=== PATIENT | female | born 1945 ===

== ENCOUNTER 2023-02-07 16:33 | Inpatient (IN) ==
[2023-02-08] MEDS: cefTRIAXone 1 gm/50 mL D5W 1 GM/50 ML BAG IV SCH ×2 (00:04→23:21)
[2023-02-08] MEDS: Albuterol HFA INHALER 8 gm MDI INH PRN ×2 (00:04→05:20)
[2023-02-08 00:15] LABS: Albumin 3.5 g/dL (3.2-5.2); Calcium 8.8 mg/dL (8.6-10.3); Magnesium 1.9 mg/dL (1.9-2.7); Potassium 3.6 mmol/L (3.5-5.0); Total Bilirubin 0.6 mg/dL (0.2-1.0)
[2023-02-08 00:21] LABS: Albumin/Globulin Ratio 1.2 (1-3); Creatinine, Serum 0.8 mg/dL (0.51-0.95); Total Protein 6.5 g/dL (6.4-8.9); eGFR CKD-EPI 75.8 (>60)
[2023-02-08] MEDS: Azithromycin 500 mg/250 ml NS 500 MG/250 ML BAG IVPB SCH (01:03)
[2023-02-08] MEDS ORDERED: Albuterol/Ipratropium NEB.SOL (2.5/0.5 MG) 3 ML NEB.SOLN INH PRN (05:19)
[2023-02-08] MEDS ORDERED: guaiFENesin 100 mg/5 ml LIQ unit dose cup PO ONE (05:45)
[2023-02-08 06:23] LABS: ABS Basophils 0.1 10^3/uL (0.0-0.1); ABS Eosinophils 0.3 10^3/uL (0.0-0.5); ABS Monocytes 1.2 10^3/uL (0.0-0.9); Hematocrit 34.2 % (35-45); Hemoglobin 11.7 g/dL (11.5-14.3); Lymphocyte % 6.2 %; Mean Corpuscular Hemoglobin 31.8 pg (27-33); Mean Corpuscular Hgb Conc 34.1 g/dL (31-36); Mean Corpuscular Volume 93.2 fL (80-97); Mean Platelet Volume 7.6 fL (7.5-11.2); Platelet Count 228 10^3/uL (150-450); Red Blood Count 3.68 10^6/uL (3.63-4.92); Red Cell Distribution Width 14.1 % (12-17); White Blood Count 15.6 10^3/uL (3.8-11.8)
[2023-02-08 06:57] LABS: Calcium 8.4 mg/dL (8.6-10.3); Creatinine, Serum 0.77 mg/dL (0.51-0.95); Magnesium 1.9 mg/dL (1.9-2.7); Potassium 3.6 mmol/L (3.5-5.0); eGFR CKD-EPI 79.4 (>60)
[2023-02-08] MEDS: CMCS: Brimonidine/Timolol 0.2%/0.5% OPTH(NF) SOL 5 ML BOTH EYES SCH ×2 (08:50→20:07)
[2023-02-08] MEDS ORDERED: Aspirin EC 81 mg TAB.EC (enteric coated) PO SCH (09:00)
[2023-02-08] MEDS: Albuterol/Ipratropium NEB.SOL (2.5/0.5 MG) 3 ML NEB.SOLN INH SCH ×5 (09:19→19:56)
[2023-02-08] MEDS: KCL 20 MEQ/100 ML IVPREMIX 20 MEQ/100 ML BAG IV SCH ×2 (12:26→18:32)
[2023-02-08 15:30] LABS: TSH Ultra Thyroid Stim Horm 1.33 mcIU/mL (0.34-5.60)
[2023-02-08 15:33] LABS: Free T4 0.99 ng/dL (0.61-1.12)
[2023-02-08] MEDS: guaiFENesin/CODIENE 100mg/10mg 5 ML UDC PO PRN (16:31)
[2023-02-08 17:36] LABS: HDL Cholesterol 88.4 mg/dL
[2023-02-08 18:24] LABS: Potassium 3.9 mmol/L (3.5-5.0)
[2023-02-08 18:29] LABS: Creatinine, Serum 0.75 mg/dL (0.51-0.95); eGFR CKD-EPI 81.9 (>60)
[2023-02-08] MEDS ORDERED: Enoxaparin 40 MG/0.4 ML SYR SUBCUT SCH ×2 (20:00→21:00)
[2023-02-08] MEDS: Latanoprost 0.005% 2.5 ml BTL BOTH EYES SCH (20:07)
[2023-02-09] MEDS: Azithromycin 500 mg/250 ml NS 500 MG/250 ML BAG IVPB SCH (00:05)
[2023-02-09] MEDS: guaiFENesin/CODIENE 100mg/10mg 5 ML UDC PO PRN ×4 (01:45→23:31)
[2023-02-09] MEDS: Albuterol 2.5mg/3 ml (0.083%) NEB.SOLN INH PRN (03:15)
[2023-02-09] MEDS: Albuterol/Ipratropium NEB.SOL (2.5/0.5 MG) 3 ML NEB.SOLN INH SCH ×4 (08:19→19:22)
[2023-02-09] MEDS: CMCS: Brimonidine/Timolol 0.2%/0.5% OPTH(NF) SOL 5 ML BOTH EYES SCH ×2 (08:35→20:23)
[2023-02-09] MEDS: Latanoprost 0.005% 2.5 ml BTL BOTH EYES SCH (20:24)
[2023-02-09] MEDS: cefTRIAXone 1 gm/50 mL D5W 1 GM/50 ML BAG IV SCH (23:25)
[2023-02-10] MEDS: guaiFENesin/CODIENE 100mg/10mg 5 ML UDC PO PRN ×4 (03:34→23:21)
[2023-02-10] MEDS: Albuterol 2.5mg/3 ml (0.083%) NEB.SOLN INH PRN ×2 (03:41→23:36)
[2023-02-10 06:08] LABS: ABS Basophils 0.1 10^3/uL (0.0-0.1); ABS Eosinophils 0.3 10^3/uL (0.0-0.5); ABS Lymphocytes 0.9 10^3/uL (1.0-4.8); ABS Monocytes 0.9 10^3/uL (0.0-0.9); ABS Neutrophils 9.5 10^3/uL (1.5-7.6); Eosinophil % 2.6 %; Hematocrit 33.4 % (35-45); Hemoglobin 11.2 g/dL (11.5-14.3); Mean Corpuscular Hemoglobin 31.1 pg (27-33); Mean Corpuscular Hgb Conc 33.5 g/dL (31-36); Mean Corpuscular Volume 92.9 fL (80-97); Mean Platelet Volume 6.9 fL (7.5-11.2); Platelet Count 273 10^3/uL (150-450); Red Blood Count 3.59 10^6/uL (3.63-4.92); Red Cell Distribution Width 13.9 % (12-17); White Blood Count 11.7 10^3/uL (3.8-11.8)
[2023-02-10 06:11] LABS: INR 1.41 (0.83-1.13)
[2023-02-10 06:35] LABS: Calcium 8.5 mg/dL (8.6-10.3); Creatinine, Serum 0.61 mg/dL (0.51-0.95); Potassium 4.2 mmol/L (3.5-5.0)
[2023-02-10] MEDS: Albuterol/Ipratropium NEB.SOL (2.5/0.5 MG) 3 ML NEB.SOLN INH SCH ×4 (07:13→19:16)
[2023-02-10] MEDS: CMCS: Brimonidine/Timolol 0.2%/0.5% OPTH(NF) SOL 5 ML BOTH EYES SCH ×2 (11:54→23:19)
[2023-02-10] MEDS: Latanoprost 0.005% 2.5 ml BTL BOTH EYES SCH (23:20)
[2023-02-10] MEDS: cefTRIAXone 1 gm/50 mL D5W 1 GM/50 ML BAG IV SCH (23:21)
[2023-02-11] MEDS: guaiFENesin/CODIENE 100mg/10mg 5 ML UDC PO PRN ×2 (06:12→21:12)
[2023-02-11 06:17] LABS: ABS Eosinophils 0.4 10^3/uL (0.0-0.5); ABS Lymphocytes 1.1 10^3/uL (1.0-4.8); ABS Monocytes 0.8 10^3/uL (0.0-0.9); ABS Neutrophils 7.8 10^3/uL (1.5-7.6); Eosinophil % 3.9 %; Hematocrit 35.2 % (35-45); Lymphocyte % 10.5 %; Mean Corpuscular Hemoglobin 31.5 pg (27-33); Mean Corpuscular Volume 92.7 fL (80-97); Platelet Count 342 10^3/uL (150-450); Red Cell Distribution Width 14.2 % (12-17); White Blood Count 10.2 10^3/uL (3.8-11.8)
[2023-02-11 06:45] LABS: Calcium 8.8 mg/dL (8.6-10.3); Creatinine, Serum 0.57 mg/dL (0.51-0.95); Magnesium 2.1 mg/dL (1.9-2.7); Potassium 4.7 mmol/L (3.5-5.0); eGFR CKD-EPI 93.5 (>60)
[2023-02-11] MEDS: Albuterol/Ipratropium NEB.SOL (2.5/0.5 MG) 3 ML NEB.SOLN INH SCH ×2 (08:02→11:17)
[2023-02-11] MEDS: CMCS: Brimonidine/Timolol 0.2%/0.5% OPTH(NF) SOL 5 ML BOTH EYES SCH ×2 (10:00→21:14)
[2023-02-11] MEDS: CMCS: FLUTICAS/UMECLI/VILANT 100-62.5-25 MDI (NF) INH SCH (15:27)
[2023-02-11] MEDS ORDERED: Enoxaparin 40 MG/0.4 ML SYR SUBCUT SCH (18:00)
[2023-02-11] MEDS: Latanoprost 0.005% 2.5 ml BTL BOTH EYES SCH (21:12)
[2023-02-11] MEDS: Polyethylene Glycol 3350 17 GM PACKET PO SCH (21:12)
[2023-02-11] MEDS: Senna TAB 8.6 mg TAB PO SCH (21:13)
[2023-02-11] MEDS: cefTRIAXone 1 gm/50 mL D5W 1 GM/50 ML BAG IV SCH (21:17)
[2023-02-12] MEDS: guaiFENesin/CODIENE 100mg/10mg 5 ML UDC PO PRN ×3 (05:11→23:45)
[2023-02-12 06:02] LABS: Hematocrit 37.5 % (35-45); Hemoglobin 12.7 g/dL (11.5-14.3); Mean Corpuscular Hemoglobin 31.2 pg (27-33); Mean Corpuscular Hgb Conc 33.8 g/dL (31-36); Mean Corpuscular Volume 92.5 fL (80-97); Mean Platelet Volume 7.3 fL (7.5-11.2); Platelet Count 382 10^3/uL (150-450); Red Blood Count 4.05 10^6/uL (3.63-4.92); Red Cell Distribution Width 13.8 % (12-17); White Blood Count 7.8 10^3/uL (3.8-11.8)
[2023-02-12 06:13] LABS: Calcium 8.8 mg/dL (8.6-10.3); Creatinine, Serum 0.62 mg/dL (0.51-0.95); Potassium 4.3 mmol/L (3.5-5.0); eGFR CKD-EPI 91.7 (>60)
[2023-02-12] MEDS: CMCS: FLUTICAS/UMECLI/VILANT 100-62.5-25 MDI (NF) INH SCH (07:55)
[2023-02-12] MEDS: Polyethylene Glycol 3350 17 GM PACKET PO SCH ×2 (08:57→20:45)
[2023-02-12] MEDS: CMCS: Brimonidine/Timolol 0.2%/0.5% OPTH(NF) SOL 5 ML BOTH EYES SCH ×2 (08:58→20:48)
[2023-02-12] MEDS ORDERED: Morphine 2 MG/ML SYRINGE IV PRN (09:28)
[2023-02-12] MEDS ORDERED: Enoxaparin 40 MG/0.4 ML SYR SUBCUT SCH (11:58)
[2023-02-12] MEDS ORDERED: Enoxaparin 40 MG/0.4 ML SYR SUBCUT ONE (18:00)
[2023-02-12] MEDS: Senna TAB 8.6 mg TAB PO SCH (20:45)
[2023-02-12] MEDS: Latanoprost 0.005% 2.5 ml BTL BOTH EYES SCH (20:48)
[2023-02-12] MEDS: cefTRIAXone 1 gm/50 mL D5W 1 GM/50 ML BAG IV SCH (23:46)
[2023-02-13] MEDS: guaiFENesin/CODIENE 100mg/10mg 5 ML UDC PO PRN (04:19)
[2023-02-13 06:58] LABS: ABS Basophils 0.1 10^3/uL (0.0-0.1); ABS Eosinophils 0.3 10^3/uL (0.0-0.5); ABS Lymphocytes 1.4 10^3/uL (1.0-4.8); ABS Monocytes 0.6 10^3/uL (0.0-0.9); ABS Neutrophils 5.4 10^3/uL (1.5-7.6); Eosinophil % 3.9 %; Hematocrit 38.1 % (35-45); Hemoglobin 12.8 g/dL (11.5-14.3); Mean Corpuscular Hemoglobin 31.5 pg (27-33); Mean Corpuscular Hgb Conc 33.7 g/dL (31-36); Mean Corpuscular Volume 93.4 fL (80-97); Mean Platelet Volume 6.9 fL (7.5-11.2); Platelet Count 459 10^3/uL (150-450); Red Blood Count 4.08 10^6/uL (3.63-4.92); Red Cell Distribution Width 13.7 % (12-17); White Blood Count 7.8 10^3/uL (3.8-11.8)
[2023-02-13 07:04] LABS: INR 1.31 (0.83-1.13)
[2023-02-13] MEDS: CMCS: FLUTICAS/UMECLI/VILANT 100-62.5-25 MDI (NF) INH SCH (07:21)
[2023-02-13 07:45] LABS: Calcium 8.9 mg/dL (8.6-10.3); Creatinine, Serum 0.65 mg/dL (0.51-0.95); Potassium 4.8 mmol/L (3.5-5.0); eGFR CKD-EPI 90.6 (>60)
[2023-02-13] MEDS: Polyethylene Glycol 3350 17 GM PACKET PO SCH ×2 (10:51→23:01)
[2023-02-13] MEDS ORDERED: fentaNYL 100 mcg/2 ml 50 MCG/ML VIAL ONE (11:08)
[2023-02-13] MEDS: CMCS: Brimonidine/Timolol 0.2%/0.5% OPTH(NF) SOL 5 ML BOTH EYES SCH ×2 (13:42→22:34)
[2023-02-13] MEDS: Latanoprost 0.005% 2.5 ml BTL BOTH EYES SCH (22:35)
[2023-02-13] MEDS: cefTRIAXone 1 gm/50 mL D5W 1 GM/50 ML BAG IV SCH (22:39)
[2023-02-13] MEDS: Senna TAB 8.6 mg TAB PO SCH (23:01)
[2023-02-14 07:12] LABS: ABS Eosinophils 0.3 10^3/uL (0.0-0.5); ABS Lymphocytes 1.5 10^3/uL (1.0-4.8); ABS Monocytes 0.5 10^3/uL (0.0-0.9); ABS Nucleated RBC 0.01 10^3/ul; Eosinophil % 4.1 %; Hematocrit 38.8 % (35-45); Hemoglobin 13.1 g/dL (11.5-14.3); Lymphocyte % 24.5 %; Mean Corpuscular Hemoglobin 31.5 pg (27-33); Mean Corpuscular Hgb Conc 33.8 g/dL (31-36); Mean Corpuscular Volume 93.1 fL (80-97); Mean Platelet Volume 6.7 fL (7.5-11.2); Nucleated Red Blood Cells % 0.1 /100 WBC (0.0-0.4); Platelet Count 520 10^3/uL (150-450); Red Blood Count 4.17 10^6/uL (3.63-4.92); Red Cell Distribution Width 13.8 % (12-17); White Blood Count 6.3 10^3/uL (3.8-11.8)
[2023-02-14] MEDS: CMCS: FLUTICAS/UMECLI/VILANT 100-62.5-25 MDI (NF) INH SCH (07:48)
[2023-02-14] MEDS: Polyethylene Glycol 3350 17 GM PACKET PO SCH (08:07)
[2023-02-14] MEDS: CMCS: Brimonidine/Timolol 0.2%/0.5% OPTH(NF) SOL 5 ML BOTH EYES SCH (08:07)
[2023-02-14 10:13] VITALS: BP 115/65
== END 2023-02-14 12:27 | disposition home or self-care (01) | DRG 193 ==
LOC: MEDTELE 20:08 → SUATTDRO 20:08 → INTOOBSV 20:08 → SUATTDRO 02-09 10:30
PROVIDERS: ADMIT Internal Medicine; ATTEND Internal Medicine